=== PATIENT | female | born 1950 | race Caucasian/White ===

== ENCOUNTER → 2020-07-16 | Outpatient (CLI) | payer MEDICARE, BC ==
[~2020-07-16] MED LIST: AMLODIPINE BESY10 MG PO; KEPPRA 500 MG500 MG PO; LEVO-T100 MCG PO; NORVASC5 MG PO
[2020-07-16 08:44] LABS: CREATININE 1.1 mg/dL (0.6-1.3)
== END ==
LOC: M.LAB 07:30 → M.ULTRA 07:57 → M.MRI 08:30
PROVIDERS: ATTEND Family Medicine
DX: I67.82 Cerebral ischemia (principal); I65.23 Occlusion and stenosis of bilateral carotid arteries; R41.0 Disorientation, unspecified; R47.01 Aphasia